=== PATIENT | male | born 1995 | race Caucasian/White ===

== ENCOUNTER 2018-11-26 19:14 | Emergency (ER) | payer SELFPAY ==
[~2018-11-26] VITALS: Ht 162.6 cm; Wt 83.9 kg
[2018-11-26 19:17] VITALS: BP 130/72
--- NOTE | 2018-11-26 19:20 | NUR ---
PT AMBULATED TO BED 9.
[2018-11-26] MEDS ORDERED: KETOROLAC 60 MG/2 ML VIAL IM ONE (19:30)
[2018-11-26] MEDS ORDERED: IBUPROFEN 600 MG TAB PO ONE (19:55)
--- NOTE | 2018-11-26 19:55 | NUR ---
PT DOES NOT WANT TORADOL INJECTION, REQUESTING A TABLET MEDICATION, CARTWRIGHT MADE AWARE, WILL CONTINUE WITH ANY NEW ORDERS.
--- NOTE | 2018-11-26 20:17 | NUR ---
Patient discharged with v/s stable. Written and verbal after care instructions given and explained. Patient alert, oriented and verbalized understanding of instructions. Ambulatory with steady gait. All questions addressed prior to discharge. ID band removed. Patient advised to follow up with PMD. Rx of IBUPROFEN, TRAMADOL, CORTISPORIN given. Patient educated on indication of medication including possible reaction and side effects. Opportunity to ask questions provided and answered.
[2018-11-26 20:18] VITALS: BP 129/68
== END 2018-11-26 20:17 | disposition home or self-care (01) ==
LOC: MED 19:14
DX: H60.501 Unspecified acute noninfective otitis externa, right ear (principal); R03.0 Elevated blood-pressure reading, without diagnosis of hypertension
CPT/HCPCS: 99283; J1885

== ENCOUNTER 2018-11-29 11:02 | Emergency (ER) | payer SELFPAY ==
[~2018-11-29] VITALS: Ht 162.6 cm; Wt 92.2 kg
[2018-11-29 11:05] VITALS: BP 150/74
--- NOTE | 2018-11-29 11:12 | NUR ---
pt amb to bed 11
--- NOTE | 2018-11-29 11:14 | NUR ---
C/O RT EAR PAIN X3 DAYS. PT SEEN HERE FRIDAY FOR EAR INFECTION AND RECIEVED NEOMYCIN AND POLYMYXIN B SULFATES AND HYDROCORTISONE EAR DROPS ALONG WITH TRAMADOL AND IBUPROFEN, PT REPORTS THAT EAR HAS GOTTEN WORSE. PT REPORTS LOSS OF HEARING IN RT EAR. PT VOMITED 2X FRIDAY AFTER TAKING IBUPROFEN ON EMPTY STOMACH, AND A FEVER FRIDAY. DENIES ANY NAUSEA 0R VOMITING AT THIS TIME. PAIN 6/ , STATES REDUCEED PAIN AFTER TAKING 2 TABS OF IBUPROFEN 2 HRS AGO BEFORE COMING TO ED. PT ON BED, ELEVATED HOB, AT LOW POSITION WITH SIDE RAILS UPX1.
--- NOTE | 2018-11-29 11:14 | NUR ---
Note undone in EDM - 11/29/18 at 1127 by [email or web address] C/O RT EAR PAIN X3 DAYS. PT SEEN HERE FRIDAY FOR EAR INFECTION AND RECIEVED NEOMYCIN AND POLYMYXIN B SULFATES AND HYDROCORTISONE EAR DROPS ALONG WITH TRAMADOL AND IBUPROFEN, PT REPORTS THAT EAR HAS GOTTEN WORSE. PT REPORTS LOSS OF HEARING IN RT EAR. PT VOMITED 2X FRIDAY AFTER TAKING IBUPROFEN ON EMPTY STOMACH, AND A FEVER FRIDAY. DENIES ANY NAUSEA 0R VOMITING AT THIS TIME. PAIN 12/07 , SYAYES REDUCEED PAIN AFTER TAKING 2 TABS OF IBUPROFEN 2 HRS AGO BEFORE COMING TO ED. PT ON BED, ELEVATED HOB, AT LOW POSITION WITH SIDE RAILS UPX1.
[2018-11-29 11:38] VITALS: BP 150/74
--- NOTE | 2018-11-29 11:38 | NUR ---
Patient discharged with v/s stable. Written and verbal after care instructions given and explained. Patient alert, oriented and verbalized understanding of instructions. Ambulatory with steady gait. All questions addressed prior to discharge. ID band removed. Patient advised to follow up with PMD. Rx of NARCAN, NORCO AND CIPRODED EAR DROP given. Patient educated on indication of medication including possible reaction and side effects. Opportunity to ask questions provided and answered.
== END 2018-11-29 11:37 | disposition home or self-care (01) ==
LOC: MED 11:02
DX: H60.91 Unspecified otitis externa, right ear (principal); Z88.0 Allergy status to penicillin
CPT/HCPCS: 99283